=== PATIENT | male | born 1995 | race Two or more races ===

== ENCOUNTER 2018-06-19 21:29 | Emergency (ER) | payer SELFPAY ==
[~2018-06-19] VITALS: Ht 167.6 cm; Wt 83.9 kg
[~2018-06-19 21:29] MED LIST: AZIT500T PO; CEFI200S PO; METR500T PO
[2018-06-19 21:32] VITALS: BP 128/89
[2018-06-19] MEDS ORDERED: AMOX500C PO (22:31)
--- NOTE | 2018-06-19 22:33 | PHYS DOC ---
Past Medical History Past Medical History: No Pertinent History, STD (NALLELY BENSON APRN) Past Surgical History: No Surgical History Additional Past Surgical Histo: "HARD PALETTE" SURGERY (NALLELY BENSON APRN) Alcohol Use: Occasionally Drug Use: None (NALLELY BENSON APRN) Adult General Chief Complaint Chief Complaint: SORE THROAT HPI HPI 23-year-old male presents to ER with complaints of 3 week history of sore throat. Patient states symptoms have been gradually worsening. Patient denies checking his temperature but reports he has had intermittent episodes of feeling feverish. Patient denies nausea or vomiting, earache, or cough. Patient denies any nafm-mtv-yhtrgye medications today but states over the past few weeks he has intermittently taken Tylenol and ibuprofen. Patient states throat swelling has been gradually worsening but states he has been able to swallow secretions and eat soft foods. Patient denies being a daily smoker. Denies recent travel or exposure to others with similar illness. (NALLELY BENSON APRN) Review of Systems Review of Systems Constitutional: Reports felt feverish intermittently- generalized fatigue Eyes: Denies change in visual acuity, redness, or eye pain [] HENT: Denies nasal congestion. Reports sore/swollen throat w/increased pain w/swallowing. Denies having inability to swallow secretions. Reports muffled voice Respiratory: Denies cough or shortness of breath [] Cardiovascular: No additional information not addressed in HPI [] GI: Denies abdominal pain, nausea, vomiting, or diarrhea [] : Denies urinary sxs Musculoskeletal: Denies back/neck pain or stiffness or joint pain [] Integument: Denies rash or skin lesions [] Neurologic: Denies headache, focal weakness or sensory changes. Denies dizzines All other systems were reviewed and found to be within normal limits, except as documented in this note. (NALLELY BENSON APRN) Current Medications Current Medications Current Medications Medications (Trade) Dose Ordered Sig/Jett Start Time Stop Time Status Last Admin Dose Admin Amoxicillin (Amoxil) 500 mg 1X ONCE 06/19/18 23:00 06/19/18 23:00 DC 06/19/18 22:50 500 MG Dexamethasone Sodium Phosphate (Decadron) 10 mg 1X ONCE 06/19/18 23:00 06/19/18 23:00 DC 06/19/18 22:49 10 MG Ibuprofen (Motrin) 600 mg 1X ONCE 06/19/18 23:00 06/19/18 23:00 DC 06/19/18 22:50 600 MG (LATANYA BYRD MD) Allergies Allergies Allergies Coded Allergies Type Severity Reaction Last Updated Verified No Known Drug Allergies 12/24/14 No (LATANYA BYRD MD) Physical Exam Physical Exam Constitutional: Well developed, well nourished, no acute distress, non-toxic appearance. [] HENT: Normocephalic, atraumatic, mild erythema bilat. TM without bulging/perforation/purulence, mucous membranes pink/dry- bilat. tonsillar swelling/erythema with exudate bilat. Uvula and tonsils swollen together- unable to visualize anterior pharynx. Muffled voice. No pooling of secretions. Nose normal. [] Eyes: Pupils equal, conjunctiva normal, no discharge. [] Neck: Normal range of motion, no tenderness, supple, no stridor. Bilat. tonsillar/submandibular adenopathy- no crepitus. Trachea midline Cardiovascular: Heart rate regular rhythm, no murmur [] Lungs & Thorax: Bilateral breath sounds clear to auscultation- resp. equal/nonlabored Abdomen: Bowel sounds normal, soft, no tenderness Skin: Warm, dry, no erythema, no rash. [] Back: No tenderness, no CVA tenderness. [] Extremities: No tenderness, no cyanosis, no clubbing, ROM intact, no edema. [] Neurologic: Alert and oriented X 3, normal motor function, normal sensory function, no focal deficits noted. [] Psychologic: Affect normal, judgement normal, mood normal. [] (NALLELY BENSON APRN) Current Patient Data Vital Signs Vital Signs Date Time Temp Pulse Resp B/P (MAP) Pulse Ox O2 Delivery O2 Flow Rate FiO2 06/19/18 21:32 98.3 96 18 128/89 (102) 99 Room Air 98.3 (LATANYA BYRD MD) EKG EKG [] (NALLELY BENSON APRN) Radiology/Procedures Radiology/Procedures [] (NALLELY BENSON APRN) Course & Med Decision Making Course & Med Decision Making On exam patient had significant pharyngeal/tonsillar swelling with erythema and exudate. With patient's exam discussed treatment will be provided for strep- pt comfortable with no strep test. Patient was provided with dose of ibuprofen and Decadron and was monitored in the ER. On reevaluation patient had improved swelling and tonsils/uvula was less swollen and uvula was from tonsils allowing visualization of anterior pharynx. No visible peritonsillar abscess. Pt is having no difficulty swallowing or pooling of secretions. Patient states symptoms have improved since receiving treatment. Discussed plans for amoxicillin from with discharge paperwork as patient had been offered IM Bicillin LA and did not want the IM injection. Patient was ordered a dose of amoxicillin while in the ER. Patient was encouraged to increase fluid intake and advised on use of Tylenol and/or ibuprofen. Education provided on signs and symptoms to return to ER. Discharge instructions were discussed. Patient to follow-up with primary care physician if symptoms persist or with any concerns. [] (NALLELY BENSON APRN) Course & Med Decision Making Staff Physician Addendum: I was working in the ER during the course of this patient's visit. I was available for consultation as needed, but I was not directly involved in the care of this patient. (LATANYA BYRD MD) Dragon Disclaimer Dragon Disclaimer This electronic medical record was generated, in whole or in part, using a voice recognition dictation system. (NALLELY BENSON APRN) Departure Departure Impression: Primary Impression: Strep throat Disposition: HOME, SELF-CARE Condition: STABLE Referrals: NO PCP (PCP) Patient Instructions: Strep Throat Additional Instructions: Drink plenty of fluids. Tylenol and/or ibuprofen as needed for pain. If symptoms persist follow-up with your primary care physician reevaluation and further c are. Scripts Amoxicillin (AMOXICILLIN) 500 Mg Capsule 1 CAP PO BID, #20 CAP 0 Refills Prov: NALLELY BENSON APRN 06/19/18 NALLELY BENSON APRN Jun 19, 2018 22:33 LATANYA BYRD MD July 01, 2018 21:21
[2018-06-19] MEDS ORDERED: IBUPROFEN 200 MG TABLET. PO ONE (23:00)
[2018-06-19] MEDS ORDERED: AMOXICILLIN 250 MG CAPSULE. PO ONE (23:00)
[2018-06-19] MEDS ORDERED: DEXAMETHASONE SOD PHOS 4 MG/ML VIAL IM ONE (23:00)
== END 2018-06-19 22:50 | disposition home or self-care (01) ==
LOC: ER 21:29
DX: J02.0 Streptococcal pharyngitis (principal); B95.5 Unspecified streptococcus as the cause of diseases classified elsewhere
CPT/HCPCS: 96372; 99283; J1100

== ENCOUNTER 2019-02-24 19:29 | Emergency (ER) | payer SELFPAY ==
[~2019-02-24] VITALS: Ht 167.6 cm; Wt 77.1 kg
[~2019-02-24 19:29] MED LIST changes: +AMOX500C PO
[2019-02-24 20:00] VITALS: BP 156/81
[2019-02-24] MEDS ORDERED: metroNIDAZOLE 500 MG TABLET PO ONE (21:00)
[2019-02-24] MEDS ORDERED: AZITHROMYCIN 250 MG TABLET. PO ONE (21:00)
[2019-02-24] MEDS ORDERED: cefTRIAXone IM 250 MG VIAL IM ONE (21:00)
--- NOTE | 2019-02-24 21:26 | PHYS DOC ---
Past Medical History Past Medical History: No Pertinent History, STD Past Surgical History: No Surgical History Additional Past Surgical Histo: "HARD PALETTE" SURGERY INFANT Alcohol Use: Occasionally Drug Use: None Adult General Chief Complaint Chief Complaint: MULTIPLE COMPLAINTS HPI HPI Patient is a 24 year old male who presents for penile discharge for 4 days and nasal congestion for 4 days. Patient is concerned about STDs would like to be treated. Denies any fever. He states he has history of chronic nasal congestion for 2 years. Review of Systems Review of Systems Constitutional: Denies fever or chills [] Eyes: Denies change in visual acuity, redness, or eye pain [] HENT: Reports chronic nasal congestion, denies sore throat [] Respiratory: Denies cough or shortness of breath [] Cardiovascular: No additional information not addressed in HPI [] GI: Denies abdominal pain, nausea, vomiting, bloody stools or diarrhea [] : Reports penile discharge. Denies dysuria or hematuria [] Musculoskeletal: Denies back pain or joint pain [] Integument: Denies rash or skin lesions [] Neurologic: Denies headache, focal weakness or sensory changes [] All other systems were reviewed and found to be within normal limits, except as documented in this note. Current Medications Current Medications Current Medications Medications (Trade) Dose Ordered Sig/Jett Start Time Stop Time Status Last Admin Dose Admin Azithromycin (Zithromax) 1,000 mg 1X ONCE 02/24/19 21:00 02/24/19 21:01 DC 02/24/19 20:55 1,000 MG Ceftriaxone Sodium (Rocephin Im) 250 mg 1X ONCE 02/24/19 21:00 02/24/19 21:01 DC 02/24/19 20:55 250 MG Metronidazole (Flagyl) 2,000 mg 1X ONCE 02/24/19 21:00 02/24/19 21:01 DC 02/24/19 20:55 2,000 MG Allergies Allergies Allergies Coded Allergies Type Severity Reaction Last Updated Verified No Known Drug Allergies 12/24/14 No Physical Exam Physical Exam Constitutional: Well developed, well nourished, no acute distress, non-toxic appearance. [] HENT: Normocephalic, atraumatic, bilateral external ears normal, oropharynx moist, no oral exudates, nose normal. [] Eyes: PERRLA, EOMI, conjunctiva normal, no discharge. [] Neck: Normal range of motion, no tenderness, supple, no stridor. [] Cardiovascular:Heart rate regular rhythm, no murmur [] Lungs & Thorax: Bilateral breath sounds clear to auscultation [] Abdomen: Bowel sounds normal, soft, no tenderness, no masses, no pulsatile masses. [] Skin: Warm, dry, no erythema, no rash. [] Back: No tenderness, no CVA tenderness. [] Extremities: No tenderness, no cyanosis, no clubbing, ROM intact, no edema. [] Neurologic: Alert and oriented X 3, normal motor function, normal sensory function, no focal deficits noted. [] Psychologic: Affect normal, judgement normal, mood normal. [] Current Patient Data Vital Signs Vital Signs Date Time Temp Pulse Resp B/P (MAP) Pulse Ox O2 Delivery O2 Flow Rate FiO2 02/24/19 20:00 98.9 88 12 156/81 (106) 100 Room Air 98.9 EKG EKG [] Radiology/Procedures Radiology/Procedures [] Course & Med Decision Making Course & Med Decision Making Pertinent Labs and Imaging studies reviewed. (See chart for details) Patient was treated for STDs. Given ENT to follow-up for chronic nasal suyapa estion. Encouraged to continue using [id number] decongestants and nasal sprays. Dragon Disclaimer Dragon Disclaimer This electronic medical record was generated, in whole or in part, using a voice recognition dictation system. Departure Departure Impression: Primary Impression: Concern about STD in male without diagnosis Additional Impression: Chronic nasal congestion Disposition: 01 HOME, SELF-CARE Condition: STABLE Referrals: NO PCP (PCP) BIBI GARCÍA MD follow up in 1-2 weeks for chronic congestion Patient Instructions: Sexually Transmitted Disease Additional Instructions: You were treated in the emergency room for sexually transmitted diseases as discussed please contact all your sex partners, let them know you were treated for STDs and ask them to seek treatment too. Use protection at all times. Continue using nsgi-paw-miqorgj decongestants and nasal sprays as needed for congestion. Please follow-up with the provided ENT for chronic congestion. Problem Qualifiers ANIYAH VEE [employer] Feb 24, 2019 21:26
== END 2019-02-24 21:37 | disposition home or self-care (01) ==
LOC: ER 19:29
DX: R36.9 Urethral discharge, unspecified (principal); R09.81 Nasal congestion; Z71.1 Person with feared health complaint in whom no diagnosis is made; Z98.890 Other specified postprocedural states; Z79.899 Other long term (current) drug therapy
CPT/HCPCS: 96372; 99283; J0696; Q0144

== ENCOUNTER 2019-03-20 07:43 | Emergency (ER) | payer SELFPAY ==
[~2019-03-20] VITALS: Ht 167.6 cm; Wt 80.0 kg
[2019-03-20 07:48] VITALS: BP 161/79
--- NOTE | 2019-03-20 08:09 | PHYS DOC ---
Past Medical History Past Medical History: No Pertinent History, STD Past Surgical History: No Surgical History Additional Past Surgical Histo: "HARD PALETTE" SURGERY Alcohol Use: Occasionally Drug Use: None Adult General Chief Complaint Chief Complaint: FLU SYMPTOM HPI HPI Patient is a previously healthy 24-year-old male who presents to the emergency department for evaluation. He states that over the weekend he began running a fever, nasal congestion, and a cough. Has had a mild sore throat as well. He denies any headache, shortness of breath, abdominal pain, myalgias, numbness, or weakness. There are no alleviating, or exacerbating factors to his symptoms otherwise. Review of Systems Review of Systems Constitutional: Denies fever or chills since this weekend.[] Eyes: Denies change in visual acuity, redness, or eye pain [] HENT: Reports nasal congestion and sore throat [] Respiratory: Denies shortness of breath [] GI: Denies abdominal pain, nausea, vomiting, bloody stools or diarrhea [] : Denies dysuria or hematuria [] Musculoskeletal: Denies back pain or joint pain , or myalgias [] Integument: Denies rash or skin lesions [] Neurologic: Denies headache, focal weakness or sensory changes [] Allergies Allergies Allergies Coded Allergies Type Severity Reaction Last Updated Verified No Known Drug Allergies 12/24/14 No Physical Exam Physical Exam PHYSICAL EXAM: CONSTITUTIONAL: Well developed, well nourished HEAD: normocephalic, atraumatic EENT: PERRL, EOMI. Conjunctivae normal color, sclerae non-icteric; moist mucous membranes. The oropharynx is mildly erythematous. There is mild nasal congestion present. Tympanic membranes are normal bilaterally. NECK: Supple, non-tender; no meningismus. LUNGS: Lungs CTA, breathing even and unlabored. Normal air movement. HEART: Regular rate and rhythm, no murmur CHEST: No deformity; non-tender ABDOMEN: The abdomen is soft, and non-tender, no masses or bruits. EXTREM: Normal ROM; no deformity, no calf tenderness. Normal pulses palpable in all extremities. There is no pedal edema. SKIN: No rash; no diaphoresis NEURO: Alert; normal speech and cognition; CN's grossly intact; strength grossly intact without focal deficit. BACK: No CVA TTP. Current Patient Data Vital Signs Vital Signs Date Time Temp Pulse Resp B/P (MAP) Pulse Ox O2 Delivery O2 Flow Rate FiO2 03/20/19 07:48 98.3 75 18 161/79 (106) 98 Room Air 98.3 EKG EKG [] Radiology/Procedures Radiology/Procedures [] Course & Med Decision Making Course & Med Decision Making Patient underwent a medical screening exam, and per hospital MSE policy, declined to complete course of treatment in this facility. Dragon Disclaimer Dragon Disclaimer This electronic medical record was generated, in whole or in part, using a voice recognition dictation system. Departure Departure Impression: Primary Impression: Upper respiratory infection Additional Impression: Pharyngitis Disposition: 07 AGAINST MEDICAL ADVICE Condition: STABLE Referrals: NO PCP (PCP) Problem Qualifiers IGNACIO CARRASCO MD Mar 20, 2019 08:09
== END 2019-03-20 08:10 | disposition left against medical advice (07) ==
LOC: ER 07:43
DX: J06.9 Acute upper respiratory infection, unspecified (principal)
CPT/HCPCS: 99281

== ENCOUNTER 2021-05-17 12:43 | Emergency (ER) | payer BC ==
[~2021-05-17] VITALS: Ht 167.6 cm; Wt 79.5 kg
[2021-05-17 13:00] VITALS: BP 130/72
[2021-05-17] MEDS ORDERED: KETOROLAC 15 MG/ML VIAL. IVP ONE (13:30)
[2021-05-17] MEDS ORDERED: IV NORMAL SALINE 1000ML BAG 1,000 ML IV ONE (13:30)
--- NOTE | 2021-05-17 13:30 | PHYS DOC ---
Past Medical History Past Medical History: No Pertinent History, STD Past Surgical History: No Surgical History Additional Past Surgical Histo: "HARD PALETTE" SURGERY INFANT Smoking Status: Never Smoker Alcohol Use: Occasionally Drug Use: None General Adult EDM: Chief Complaint: FLANK PAIN HPI: HPI: Patient is a 26-year-old male who presents to the emergency department for right flank pain that has been intermittent for the last week. Patient describes the pain as a sharp pain. States that it feels like there is a lump in his back whe n he tries to stretch. He is reporting urinary frequency and urgency. Patient denies any hematuria, dysuria, nausea, vomiting, abdominal pain, fevers. Review of Systems: Review of Systems: Constitutional: See HPI GI: See HPI : See HPI Musculoskeletal: See HPI Heart Score: C/O Chest Pain: N/A Risk Factors: Risk Factors: DM, Current or recent (<one month) smoker, HTN, HLP, family history of CAD, obesity. Risk Scores: Score 0 - 3: 2.5% MACE over next 6 weeks - Discharge Home Score 4 - 6: 20.3% MACE over next 6 weeks - Admit for Clinical Observation Score 7 - 10: 72.7% MACE over next 6 weeks - Early Invasive Strategies Current Medications: Current Medications Medications (Trade) Dose Ordered Sig/Jett Start Time Stop Time Status Last Admin Dose Admin Ketorolac Tromethamine (Toradol 15mg Vial) 15 mg 1X ONCE 05/17/21 13:30 05/17/21 13:31 Sodium Chloride 1,000 ml @ 1,000 mls/hr 1X ONCE 05/17/21 13:30 05/17/21 14:29 Allergies: Allergies: Allergies Coded Allergies Type Severity Reaction Last Updated Verified No Known Drug Allergies 12/24/14 No Physical Exam: PE: Constitutional: Well developed, well nourished, no acute distress, non-toxic appearance. [] HENT: Normocephalic, atraumatic, bilateral external ears normal, oropharynx moist, no oral exudates, nose normal. [] Eyes: PERRL, EOMI, conjunctiva normal, no discharge. [] Neck: Normal range of motion, no stridor Cardiovascular:Heart rate regular rhythm, no murmur [] Lungs & Thorax: Bilateral breath sounds clear to auscultation [] Abdomen: Bowel sounds normal, soft, no tenderness, no masses, no pulsatile masses. [] Skin: Warm, dry, no erythema, no rash. [] Back: No tenderness, no CVA tenderness. [] Extremities: No tenderness, no cyanosis, no clubbing, ROM intact, no edema. [] Neurologic: Alert and oriented X 3, normal motor function, normal sensory function, no focal deficits noted. [] Psychologic: Affect normal, judgement normal, mood normal. [] Current Patient Data: Labs: Laboratory Tests Test 05/17/21 13:12 Urine Collection Type Unknown Urine Color (Auto) Light yellow Urine Turbidity Clear Urine pH (Auto) 6.5 Urine Specific [place] 1.015 Urine Protein (Auto) Negative mg/dL Urine Glucose (Auto)(UA) Negative mg/dL Urine Ketones (Auto) Negative mg/dL Urine Blood (Auto) Negative Urine Nitrite Negative Urine Bilirubin (Auto) Negative Urine Urobilinogen (Auto) 2 mg/dL Urine Leukocyte Esterase (Auto) Negative Urine RBC 0 /HPF Urine WBC 1-4 /HPF Urine Bacteria 0 /HPF Urine Mucus Mod /LPF Current Medications Medications (Trade) Dose Ordered Sig/Jett Route PRN Reason Start Time Stop Time Status Last Admin Dose Admin Sodium Chloride 1,000 ml @ 1,000 mls/hr 1X ONCE IV 05/17/21 13:30 05/17/21 14:29 DC Ketorolac Tromethamine (Toradol 15mg Vial) 15 mg 1X ONCE IVP 05/17/21 13:30 05/17/21 13:31 DC Vital Signs: Vital Signs Date Time Temp Pulse Resp B/P (MAP) Pulse Ox O2 Delivery O2 Flow Rate FiO2 05/17/21 13:00 98.4 82 18 130/72 (91) 98 Room Air 98.4 EKG: EKG: [] Radiology/Procedures: Radiology/Procedures: []EXAM: Noncontrast CT of the abdomen and pelvis. Coronal and sagittal reformatted images were performed. PQRS compliance statement: One or more of the following individualized dose reduction techniques were utilized for this examination: 1. Automated exposure control 2. Adjustment of the mA and/or kV according to patient size 3. Use of iterative reconstruction technique COMPARISON: None FINDINGS: No free air, free fluid, or fluid collection. Lower chest: The visualized lower lungs are aerated. No pleural or pericardial effusion. ABDOMEN: Liver: The noncontrast liver is homogeneous in attenuation. Gallbladder and biliary: Normal gallbladder without radiopaque stone. Normal caliber bile ducts. Spleen: Normal spleen. Pancreas: The noncontrast pancreas is homogeneous in attenuation without peripancreatic inflammatory changes. Adrenal glands: Normal adrenal glands. Kidneys and ureters: No opaque urinary calculi. Normal kidneys and ureters. GI tract: The stomach is decompressed and poorly evaluated. Normal caliber small bowel and colon. Normal appendix. Vascular structures: Normal caliber abdominal aorta. Lymph nodes: No lymphadenopathy in the abdomen or pelvis. PELVIS: Genitourinary system: Urinary bladder is partially distended. SKELETAL STRUCTURES AND SOFT TISSUES: No fracture or destructive lesion in the visualized skeleton. IMPRESSION: No acute findings. No hydronephrosis or opaque urinary calculi. Electronically signed by: Hiren Kincaid MD (05/17/2021 2:25 PM) [id number] DICTATED and SIGNED BY: HIREN KINCAID MD DATE: 05/17/211419 Course & Med Decision Making: Course & Med Decision Making Pertinent Labs and Imaging studies reviewed. (See chart for details) [] Patient is a 26-year-old male who presents to the emergency department for right flank pain that is intermittent with urinary frequency and urgency. Work- up in the emergency department consisted of urinalysiS, CBC, CMP, lipase, CT imaging of abdomen pelvis. Patient was treated with IV fluids and pain medication. I was informed by [facility] RECEIVER that patient is refusing IV and blood, IV medications. He reports that he just wants to see if there is anything in his urine. His urinalysis is negative for any infection. The CT scan of his abdomen and pelvis does not show any kidney stones or other acute findings. I did put in an order for gonorrhea and Chlamydia testing on patient's urine and he will be notified of those results when they become available in approximately 2 days. He is advised to avoid sexual intercourse until he receives these results. Advised to take Tylenol and ibuprofen for pain and increase his fluids. I discussed with patient all findings and diagnostic testing as well as the need to follow-up with PCP for further evaluation and treatment or return to the ER if any new or worsening symptoms. Strict return precautions were also discussed at length. Patient voiced understanding and agreement with the plan. Patient is hemodynamically stable at the time of disposition. Dragon Disclaimer: Krissy Disclaimer: This electronic medical record was generated, in whole or in part, using a voice recognition dictation system. Departure Departure Impression: Primary Impression: Flank pain Disposition: HOME / SELF CARE / HOMELESS Condition: GOOD Referrals: NO PCP (PCP) Patient Instructions: Flank Pain Additional Instructions: You are seen in the emergency department for urinary frequency and urgency as well as right flank pain. Your urinalysis does not show any infection. The CT scan of your abdomen and pelvis does not show any kidney stones. Please increase your fluids. Take Tylenol and ibuprofen for any pain. I tested your urine for gonorrhea and chlamydia. This will result in approximately 2 days and you will receive a phone call with your results. Please avoid sexual intercourse until you receive these results. If you are positive for anything, you must seek treatment, you can be seen at the health department for treatment. If you are positive for anything you must notify your sexual partners. Follow-up with your primary care provider tomorrow regarding your ER visit. Return to the emergency department if you develop abdominal pain, worsening of your back pain, intractable nausea or vomiting, high fevers refractory to treatment or any new or worsening concerns. BRIANNA CORRALES APRN May 17, 2021 13:30
--- NOTE | 2021-05-17 14:27 | RAD ---
CT ABDOMEN+PELVIS WO INDICATION: RIGHT LOWER, FLANK PAIN EXAM: Noncontrast CT of the abdomen and pelvis. Coronal and sagittal reformatted images were perform ed. PQRS compliance statement: One or more of the following individualized dose reduction techniques were utilized for this examinat ion: 1. Automated exposure control 2. Adjustment of the mA and/or kV according to patient size 3. Use of iterative reconstruction technique COMPARISON: None FINDINGS: No free air, free fluid, or fluid collection. Lower chest: The visualized lower lungs are aerated. No pleural or pericardial effusion. ABDOMEN: Liver: The noncontrast liver is homogeneous in attenuation. Gallbladder and biliary: Normal gallbladder without radiopaque stone. Normal caliber bile ducts. Spleen: Normal spleen. Pancreas: The noncontrast pancreas is homogeneous in attenuation without peripancreatic inflammatory changes. Adrenal glands: Normal adrenal glands. Kidneys and ureters: No opaque urinary calculi. Normal kidneys and ureters. GI tract: The stomach is decompressed and poorly evaluated. Normal caliber small bowel and colon. Nor mal appendix. Vascular structures: Normal caliber abdominal aorta. Lymph nodes: No lymphadenopathy in the abdomen or pelvis. PELVIS: Genitourinary system: Urinary bladder is partially distended. SKELETAL STRUCTURES AND SOFT TISSUES: No fracture or destructive lesion in the visualized skeleton. IMPRESSION: No acute findings. No hydronephrosis or opaque urinary calculi. Electronically signed by: Rod Gutierrez MD (05/17/2021 2:25 PM) [id number]
[2021-05-17 14:52] LABS: BACTERIA,URINE 0 /HPF (0-FEW); RBC,URINE 0 /HPF (0-2)
== END 2021-05-17 15:16 | disposition home or self-care (01) ==
LOC: ER 12:43
DX: R10.9 Unspecified abdominal pain (principal); R35.0 Frequency of micturition; R39.15 Urgency of urination
CPT/HCPCS: 74176; 81001; 87491; 87591; 99284-25